=== PATIENT | female | born 1950 ===

== ENCOUNTER 2017-11-14 06:48 | Day surgery (SDC) | payer MEDICARE ==
[2017-11-14 07:26] VITALS: TEMP 97.5
[2017-11-14] MEDS ORDERED: Propofol 10 mg/ml Inj (20 ML) ONE (08:06)
[2017-11-14 15:03] VITALS: BP 110/70; PULSE 82; RESP 16; O2SAT 98
== END 2017-11-14 10:29 | disposition home or self-care (01) ==
LOC: C.ENDO 06:48
PROVIDERS: ATTEND Internal Medicine Gastroenterology
DX: Z12.11 Encounter for screening for malignant neoplasm of colon (principal); D12.2 Benign neoplasm of ascending colon; D12.0 Benign neoplasm of cecum; D12.5 Benign neoplasm of sigmoid colon; K64.8 Other hemorrhoids
CPT/HCPCS: 45380; 45385; 88305; J2704

== ENCOUNTER 2018-06-11 09:29 | Outpatient (CLI) | payer MEDICARE | END 2018-06-12 10:49 | disposition home or self-care (01) | LOC: C.LAB 09:29 | DX: E11.65 Type 2 diabetes mellitus with hyperglycemia (principal); E78.2 Mixed hyperlipidemia; E23.6 Other disorders of pituitary gland ==

== ENCOUNTER 2018-07-02 10:13 | Outpatient (CLI) | payer MEDICARE | END 2018-07-02 10:14 | disposition home or self-care (01) | LOC: C.DEXAIC 10:13 | DX: Z78.0 Asymptomatic menopausal state (principal) ==